=== PATIENT | female | born 1960 | race African-American/Black ===

== ENCOUNTER 2022-10-02 08:33 | Day surgery (SDC) | payer OTHER ==
[~2022-10-02] VITALS: Ht 170.2 cm; Wt 90.7 kg
[2022-10-02] MEDS ORDERED: diphenhydrAMINE 50 MG/ML VIAL ONE (09:13)
[2022-10-02] MEDS ORDERED: fentaNYL citrate 0.05 MG/ML VIAL ONE (09:13)
[2022-10-02] MEDS ORDERED: MIDAZOLAM 5 MG/5 ML VIAL ONE (09:13)
[2022-10-02] MEDS: MIDAZOLAM 2 MG/2 ML VIAL IVP ONE (09:14)
[2022-10-02] MEDS: fentaNYL citrate 0.05 MG/ML VIAL IVP ONE (09:15)
[2022-10-02] MEDS: diphenhydrAMINE 50 MG/ML VIAL IVP ONE (09:20)
[2022-10-02] MEDS: LIDOCAINE 2% 100 MG/5 ML UJET TP ONE (09:20)
== END 2022-10-02 11:04 | disposition home or self-care (01) ==
LOC: MMU 08:33 → MOR 08:33
PROVIDERS: ATTEND Internal Medicine Gastroenterology
DX: Z12.11 Encounter for screening for malignant neoplasm of colon (principal); K64.8 Other hemorrhoids; I10 Essential (primary) hypertension; E11.9 Type 2 diabetes mellitus without complications; F41.9 Anxiety disorder, unspecified; K74.69 Other cirrhosis of liver; F32.A Depression, unspecified; Z86.010 Personal history of colon polyps; F17.210 Nicotine dependence, cigarettes, uncomplicated; Z20.822 Contact with and (suspected) exposure to COVID-19; Z79.899 Other long term (current) drug therapy; Z90.710 Acquired absence of both cervix and uterus
CPT/HCPCS: 45378; 87426; J1200; J2250; J3010